=== PATIENT | female | born 1965 | race Caucasian/White ===

== ENCOUNTER 2020-02-11 15:48 | Emergency (ER) | payer MEDICARE, MEDICAID ==
[~2020-02-11] VITALS: Ht 170.2 cm; Wt 99.8 kg
[2020-02-11] MEDS ORDERED: SYNTHROID137 MC1 PO (16:01)
[2020-02-11 16:37] LABS: ABSOLUTE BASOPHILS 0.1 thou/uL (0.0-0.2); ABSOLUTE LYMPHOCYTES 1.4 thou/uL (0.8-5.3); ABSOLUTE MONOCYTES 0.6 thou/uL (0.0-1.2); ABSOLUTE NEUTROPHILS 8.7 thou/uL (1.6-8.1); BASOPHILS 0.6 %; EOSINOPHILS 0.2 %; HEMOGLOBIN 12.7 gm/dL (12.0-15.0); LYMPHOCYTES 13.3 %; MCH 27.7 pg (26.0-34.0); MCHC 33.5 g/dL (28.0-37.0); MCV 82.5 fL (80.0-100.0); MONOCYTES 5.9 %; MPV 7.4 fl. (7.2-11.1); NUCLEATED RBCS 0 /100WBC; PLATELET COUNT* 250 thou/uL (150-400); RDW-CV 14.6 % (10.5-14.5); WBC 10.8 thou/uL (4.0-11.0)
[2020-02-11 16:46] LABS: CALCIUM 7.5 mg/dL (8.5-10.1); CREATININE 1.5 mg/dL (0.6-1.3); POTASSIUM 3.4 mmol/L (3.5-5.1)
[2020-02-11 16:52] LABS: ALBUMIN 3.5 g/dL (3.4-5.0); TOTAL BILIRUBIN 0.3 mg/dL (<0.1-1.0); TOTAL PROTEIN 7.5 g/dL (6.4-8.2)
[2020-02-11] MEDS ORDERED: EPIPEN 2-P0.3 MG/0.3 IM (17:20)
[2020-02-11] MEDS ORDERED: ATIVAN1 M1 PO (17:20)
[2020-02-11 17:38] VITALS: BP 133/81
--- NOTE | 2020-02-12 14:57 | EKG ---
[place] [address] ELECTROCARDIOGRAM REPORT Name: MYRA BUTLER Room: [facility] [place]#: [id number] Admission: 02/11/20 Attend Phys: Discharge: 02/11/20 Date of : 69 Date of Service: 02/11/20 1622 Report #: [id number] THIS REPORT FOR: //name// [facility] ED Test Date: 2020-02-11 Test Time: 16:22:18 Pat Name: MYRA BUTLER Department: Room: Gender: [employer]: [place] : 1965 Requested By: Isra Dos Santos Order Number: [id number] MD: Damir Dubois Measurements Intervals [facility] Rate: 104 P: 42 DC: 161 QRS: 8 QRSD: 97 T: 32 QT: 352 QTc: 463 Interpretive Statements Sinus tachycardia No previous ECG available for comparison Electronically Signed On 02-12-2020 14:57:22 CDT by Damir Dubois [email or web address] <ELECTRONICALLY SIGNED> By: Damir Dubois MD, [facility] 02/12/20 1457 21 21 Damir Dubois MD, FACC /EPI
== END 2020-02-11 17:39 | disposition home or self-care (01) ==
LOC: M.ERS 15:48
PROVIDERS: Emergency Medicine Emergency Medical Services
DX: R56.9 Unspecified convulsions (principal); S80.02XA Contusion of left knee, initial encounter; S40.029A Contusion of unspecified upper arm, initial encounter; M54.2 Cervicalgia; Z88.8 Allergy status to other drugs, medicaments and biological substances; E03.9 Hypothyroidism, unspecified; W18.39XA Other fall on same level, initial encounter; Y93.89 Activity, other specified; Y92.89 Other specified places as the place of occurrence of the external cause; Y99.8 Other external cause status

== ENCOUNTER 2020-05-17 15:01 | Emergency (ER) | payer MEDICARE, MEDICAID ==
[~2020-05-17] VITALS: Ht 167.6 cm; Wt 70.3 kg
--- NOTE | ~2020-05-17 | EMS ---
[place] [address] EMS Patient Care Report Name: ELIZABETH BUTLER [id number] Admission: 05/17/20 Attend Phys: Discharge: 05/17/20 Date of : 69 Report #: [id number] THIS REPORT FOR: //name// Report Transmitted: 05/18/2020 09:37 EMS Care Summary [facility] Incident [id number] @ 05/17/2020 14:08 Incident Location [address] [place] [address] Patient ELIZABETH BUTLER Female, 54 Years 1965 Patient Address Patient History Seizures, Patient Allergies No known allergies, Patient Medications Potassium, Clonazepam, Famotidine, Synthroid, Chief Complaint Seizure activity three times Disposition Transported No Lights/[place] Dispatch Reason Convulsions/Seizure Transported To [facility] Narrative Dispatch: [facility] was dispatched to a local residence for a female with seizure like activity. [facility] responded from the station and arrived on scene without incident. Chief Complaint: [place] [address] EMS Patient Care Report Name: ELIZABETH BUTLER Room: [facility]#: [id number] Admission: 05/17/20 Attend Phys: Discharge: 05/17/20 Date of : 69 Report #: [id number] Upon arrival to the scene, the patient, (Elizabeth Butler) was found lying down on the couch. Elizabeth was alert and oriented and no life threats or injuries were noted. History of Present Illness: Elizabeth's parents advised that they noticed that she had three seizures throughout the day. They stated that each of the first two lasted about ten minutes and the final seizure lasted approximately fifteen. They stated that she does have a seizure history, and that normally if she seizes, she only does so once per day. Elizabeth was reportedly taken off her old seizure medication due to an issue with kidney function, and she has since been taking a different medication for her seizure. Elizabeth's parents stated that she had no known exposure to COVID-19, and also had no recent changes in normal routine. Assessment: Primary Assessment - Elizabeth had a patent airway, her respiratory effort was not noted to be labored. Her skin was pink, warm, and dry. Radial pulses were strong and present. No abnormal disability was noted. Secondary Assessment - See assessment section for further information. Reason for Ambulance Transport: Elizabeth required further treatment and evaluation at the hospital. Treatments: Assessment was performed. Vital signs were obtained. 5-Lead EKG was obtained showing a sinus tachycardia without ectopy. Summary of Call: Elizabeth self transferred to the cot, sat down, and all seat belts were applied. She was covered with a blanket. She was taken to the ambulance and loaded without incident. Non-emergency transport to the hospital began. During transport, no changes in patient condition were noted. Report was called to the receiving facility. Upon arrival to the hospital, she was unloaded and taken into the hospital. She self transferred to the bed without complication. Report was given to nursing staff, signatures were obtained, and patient care was transferred. [facility] returned to service. Initial Vitals @14:16P: 122,R: 22,BP: 164/70,Pain: 0/10,GCS: 15,Glucose: 132,SpO2: 99,Revised Trauma: 12, @14:45P: 128,R: 14,BP: 162/72,Pain: 0/10,GCS: 15,SpO2: 99,Revised Trauma: 12, @14:30P: 126,R: 14,BP: 158/74,Pain: 0/10,GCS: 15,SpO2: 99,Revised Trauma: 12, Assessments @14:16MENTAL:Person Oriented,Time Oriented,Event Oriented,[place] [address] EMS Patient Care Report Name: ELIZABETH BUTLER Room: [facility]#: [id number] Admission: 05/17/20 Attend Phys: Discharge: 05/17/20 Date of : 69 Report #: [id number] Oriented,SKIN:Other,HEENT:Eyes: Left Pupil: 3-mm,Eyes: Right Pupil: 3-mm,LUNG SOUNDS:ABDOMEN:PELVIS//GI:EXTREMITIES:Capillary Refill: Left Upper: < 2 Sec,PULSE:Radial: 2+ Normal,NEURO:@14:38MENTAL:Event Oriented,Time Oriented,Place Oriented,Person Oriented,SKIN:HEENT:Head/Face: No Abnormalities,Eyes: No Abnormalities,Neck/Airway: No Abnormalities,LUNG SOUNDS:General: No Abnormalities,Left Upper: No Abnormalities,Right Upper: No Abnormalities,Left Lower: No Abnormalities,Right Lower: No Abnormalities,ABDOMEN:General: No Abnormalities,Left Upper: No Abnormalities,Right Upper: No Abnormalities,Left Lower: No Abnormalities,Right Lower: No Abnormalities,PELVIS//GI:EXTREMITIES:PULSE:NEURO:No Abnormalities, Impression Seizures Procedures @14:16ALS AssessmentResponse: UnchangedSucceeded Timeline 14:07,Call Received 14:08,Dispatched 14:10,En Route 14:15,On Scene 14:16,At Patient 14:16,ALS Assessment,Response: UnchangedSucceeded, 14:16,BP: 164/70 M,PULSE: 122,RR: 22 R,SPO2: 99 Ox,ETCO2: ,B,PAIN: 0,GCS: 15, 14:26,Depart Scene 14:30,BP: 158/74 M,PULSE: 126,RR: 14 R,SPO2: 99 Ox,ETCO2: ,BG: ,PAIN: 0,GCS: 15, 14:45,BP: 162/72 M,PULSE: 128,RR: 14 R,SPO2: 99 Ox,ETCO2: ,BG: ,PAIN: 0,GCS: 15, 14:59,At Destination 15:50,Call Closed Disclaimer v1.1 Copyright 2020 [employer] This EMS Care Summary contains data elements from the applicable legal record (which may be displayed differently). It is designed to provide pertinent information for the following purposes: continuity of care, clinical quality, and state data reporting. The complete legal record is available to ED staff and administrators of the receiving hospital in [employer]s Patient Tracker. All data is provided "as is."
[~2020-05-17 15:01] MED LIST: ATIVAN1 M1 PO; EPIPEN 2-P0.3 MG/0.3 IM; SYNTHROID137 MC1 PO
[2020-05-17 15:37] LABS: ABSOLUTE BASOPHILS 0.1 thou/uL (0.0-0.2); ABSOLUTE LYMPHOCYTES 1.4 thou/uL (0.8-5.3); ABSOLUTE MONOCYTES 0.3 thou/uL (0.0-1.2); ABSOLUTE NEUTROPHILS 9.6 thou/uL (1.6-8.1); BASOPHILS 1.3 %; EOSINOPHILS 0.1 %; HEMATOCRIT 37.4 % (37.0-47.0); HEMOGLOBIN 12.6 gm/dL (12.0-15.0); MCH 26.9 pg (26.0-34.0); MCHC 33.7 g/dL (28.0-37.0); MCV 79.9 fL (80.0-100.0); MPV 7.4 fl. (7.2-11.1); NUCLEATED RBCS 0 /100WBC; PLATELET COUNT* 279 thou/uL (150-400); POLYS 83.6 %; RBC 4.68 mil/uL (4.20-5.00); RDW-CV 14.4 % (10.5-14.5); WBC 11.5 thou/uL (4.0-11.0)
[2020-05-17 15:55] LABS: CREATININE 1.5 mg/dL (0.6-1.3)
[2020-05-17 15:58] LABS: CALCIUM 5.9 mg/dL (8.5-10.1)
[2020-05-17 16:00] LABS: ALBUMIN 3.2 g/dL (3.4-5.0); TOTAL BILIRUBIN 0.2 mg/dL (<0.1-1.0); TOTAL PROTEIN 7.6 g/dL (6.4-8.2)
[2020-05-17 16:15] VITALS: BP 130/80
[2020-05-17] MEDS ORDERED: ATIVAN1 M1 PO (16:16)
== END 2020-05-17 16:15 | disposition home or self-care (01) ==
LOC: M.ERS 15:01
PROVIDERS: Family Medicine
DX: R56.9 Unspecified convulsions (principal); F41.9 Anxiety disorder, unspecified; E83.51 Hypocalcemia; E87.6 Hypokalemia; E03.9 Hypothyroidism, unspecified; Z88.8 Allergy status to other drugs, medicaments and biological substances